=== PATIENT | male | born 1960 | race Caucasian/White ===

== ENCOUNTER 2022-03-27 11:01 | Emergency (ER) | payer OTHER ==
[~2022-03-27] VITALS: Ht 172.7 cm; Wt 86.2 kg
[2022-03-27 11:12] VITALS: BP 144/95
--- NOTE | 2022-03-27 11:30 | NUR ---
61/M JAMES FROM [facility] C/O RLQ PAIN X1 DAY, DENIES NVD, COVID + 5 DAYS. AFEBRILE AT TRIAGE. AAO4. ON COMFORT FILLER. IV ESTABLISHED TO RIGHT HAND WITH 20G. BLOOD DRAWN AND SENT T FAISAL YATES PMH: EPILEPSY, GOUT, HYPOTHYROID, CEREBRAL PALSY, DEPRESSION
[2022-03-27] MEDS ORDERED: KETOROLAC 30 MG/ML VIAL IVP ONE (11:55)
[2022-03-27] MEDS ORDERED: NACL 0.9% 1,000 ML IV SCH (11:55)
[2022-03-27 12:12] LABS: BASOPHILS % (AUTO) 0.8 % (0.0-2.0); EOSINOPHILS # (AUTO) 0.1 K/uL (0-0.4); EOSINOPHILS % (AUTO) 2.6 % (0.0-4.0); LYMPHOCYTES # (AUTO) 0.5 K/uL (2.0-11.5); LYMPHOCYTES % (AUTO) 11.8 % (20.5-51.1); MEAN CORPUSCULAR HEMOGLOBIN 31 pg (27-31); MEAN CORPUSCULAR HGB CONC 33 g/dL (33-37); MEAN CORPUSCULAR VOLUME 91.6 fL (80-94); MONOCYTES # (AUTO) 0.4 K/uL (0.8-1.0); MONOCYTES % (AUTO) 10.1 % (1.7-9.3); NEUTROPHILS # (AUTO) 2.9 K/uL (1.8-7.7); NEUTROPHILS % (AUTO) 74.7 % (42.2-75.2); PLATELET COUNT (AUTO) 244 K/uL (140-450); RED BLOOD CELL COUNT(AUTO) 4.91 MIL/uL (4.20-6.10); WHITE BLOOD COUNT (AUTO) 3.9 K/uL (4.8-10.8)
[2022-03-27 12:42] LABS: ALBUMIN 3.9 g/dL (3.4-5.0); ANION GAP 13.2 (8-16); CARBON DIOXIDE 27.5 mmol/L (21-32); POTASSIUM 4.7 mmol/L (3.5-5.1); TOTAL BILIRUBIN 0.3 mg/dL (0.0-1.0)
--- NOTE | 2022-03-27 12:53 | NUR ---
PT UNABLE TO PROVIDE URINE AT THIS TIME. WILL ATTEMPT AGAIN LATER
[2022-03-27] MEDS ORDERED: ONDANSETRON 4 MG/2 ML VIAL IVP ONE (13:40)
[2022-03-27] MEDS ORDERED: MORPHINE SULFATE 4 MG/ML SYR IVP ONE (13:40)
[2022-03-27 14:10] LABS: APPEARANCE,URINE CLEAR (CLEAR); BILIRUBIN,URINE NEGATIVE (NEGATIVE); BLOOD, URINE NEGATIVE (NEGATIVE); COLOR,URINE YELLOW (YELLOW); LEUKOCYTE ESTERASE ,URINE NEGATIVE (NEGATIVE); NITRITE, URINE NEGATIVE (NEGATIVE); PH,URINE 5.5 (5.0-9.0); UGLUCOSE NEGATIVE (NEGATIVE)
[2022-03-27] MEDS ORDERED: predniSONE 20 MG TAB PO ONE (14:40)
[2022-03-27] MEDS ORDERED: AMOXIL/CLAVULANATE 875/125 MG 1 TAB PO ONE (14:40)
[2022-03-27] MEDS ORDERED: PRED20TA5 PO (14:42)
[2022-03-27] MEDS ORDERED: AMOX1TAB8 PO (14:44)
--- NOTE | 2022-03-27 15:23 | NUR ---
gave report to Melida from [facility]. Melida made aware of patient's dc. pending transport at this time
[2022-03-27 15:39] VITALS: BP 125/76
--- NOTE | 2022-03-27 17:45 | NUR ---
Patient discharged with v/s stable. Written and verbal after care instructions given and explained. Patient alert, oriented and verbalized understanding of instructions. Ambulance Transport with to halfway. All questions addressed prior to discharge. ID band removed. Patient advised to follow up with PMD. Rx given. Patient educated on indication of medication including possible reaction and side effects. Opportunity to ask questions provided and answered.
== END 2022-03-27 17:45 ==
LOC: MED 11:01
DX: U07.1 COVID-19 (principal); I77.6 Arteritis, unspecified; G40.909 Epilepsy, unspecified, not intractable, without status epilepticus; E03.9 Hypothyroidism, unspecified; F32.9 Major depressive disorder, single episode, unspecified; Z79.899 Other long term (current) drug therapy
CPT/HCPCS: 36415; 74176; 80053; 81003; 82150; 83690; 85025; 96361; 96374; 96375; 99284; J1885; J2270; J2405; J7030; J7512

== ENCOUNTER 2022-05-13 13:38 | Emergency (ER) | payer OTHER ==
[~2022-05-13] VITALS: Ht 180.3 cm; Wt 99.8 kg
[~2022-05-13 13:38] MED LIST: AMOX1TAB8 PO; PRED20TA5 PO
--- NOTE | 2022-05-13 13:47 | NUR ---
BIBA BLS TO ER BED 6
[2022-05-13 13:57] VITALS: BP 150/79
--- NOTE | 2022-05-13 14:00 | NUR ---
61YO MALE PT BIBA [facility] C/O EPIGASTRIC PAIN X2DAYS. REPORTS ONSET OF NAUSEA AND LOOSE STOOLS-BLOOD XTODAY. ABD NON TENDER OR DISTENDED. DENIES TAKING MEDICATION, V/D, FEVER OR CHILLS. PT AAOX4, ON INSIDE WIRER. RESPIRATIONS EVEN AND UNLABORED. BED AT LOWEST POSITION, BED RAILS UP X2 .SEIZURE PADS IN PLACE. HX: CEREBRAL PALSY, HTN, HLD, HYPOTHYROID, GOUT, B CELL LYMPHOMA, DEPRESSION NKA
--- NOTE | 2022-05-13 14:02 | NUR ---
MD MEADOWS AT BEDSIDE FOR EVALUATION
--- NOTE | 2022-05-13 14:20 | NUR ---
LAB AT BEDSIDE
--- NOTE | 2022-05-13 14:23 | NUR ---
pt encouraged to give urine sample. urinal left at bedside
[2022-05-13 14:32] LABS: BASOPHILS % (AUTO) 0.6 % (0.0-2.0); EOSINOPHILS # (AUTO) 0.1 K/uL (0-0.4); EOSINOPHILS % (AUTO) 2.4 % (0.0-4.0); HEMATOCRIT 43.4 % (36-52); HEMOGLOBIN 14.7 g/dL (12.0-18.0); LYMPHOCYTES # (AUTO) 0.4 K/uL (2.0-11.5); LYMPHOCYTES % (AUTO) 9.8 % (20.5-51.1); MEAN CORPUSCULAR HEMOGLOBIN 31 pg (27-31); MEAN CORPUSCULAR HGB CONC 34 g/dL (33-37); MEAN CORPUSCULAR VOLUME 90.4 fL (80-94); MONOCYTES # (AUTO) 0.5 K/uL (0.8-1.0); MONOCYTES % (AUTO) 11.7 % (1.7-9.3); NEUTROPHILS # (AUTO) 3.2 K/uL (1.8-7.7); NEUTROPHILS % (AUTO) 75.5 % (42.2-75.2); PLATELET COUNT (AUTO) 209 K/uL (140-450); WHITE BLOOD COUNT (AUTO) 4.2 K/uL (4.8-10.8)
[2022-05-13 14:52] LABS: ALBUMIN 4.2 g/dL (3.4-5.0); ANION GAP 10.1 (8-16); CARBON DIOXIDE 24.9 mmol/L (21-32); CREATININE 1.1 mg/dL (0.6-1.3); TOTAL BILIRUBIN 0.3 mg/dL (0.0-1.0)
--- NOTE | 2022-05-13 15:05 | NUR ---
PT W/ INCREASED NAUSEA. MD MADE AWARE
[2022-05-13] MEDS ORDERED: ONDANSETRON 4 MG/2 ML VIAL IVP ONE (15:10)
[2022-05-13] MEDS ORDERED: NACL 0.9% 1,000 ML IV ONE (15:10)
[2022-05-13 15:30] LABS: APPEARANCE,URINE CLEAR (CLEAR); BILIRUBIN,URINE NEGATIVE (NEGATIVE); BLOOD, URINE NEGATIVE (NEGATIVE); COLOR,URINE YELLOW (YELLOW); LEUKOCYTE ESTERASE ,URINE NEGATIVE (NEGATIVE); NITRITE, URINE NEGATIVE (NEGATIVE); PH,URINE 6.5 (5.0-9.0); UGLUCOSE NEGATIVE (NEGATIVE)
--- NOTE | 2022-05-13 16:12 | NUR ---
PT TAKEN TO CT VIA [facility]
--- NOTE | 2022-05-13 16:30 | NUR ---
PT BROUGHT BACK VIA [facility]
[2022-05-13 17:46] VITALS: BP 144/95
--- NOTE | 2022-05-13 18:38 | NUR ---
pt provided w/ dinner. pt awake , repositioned and eating in bed
--- NOTE | 2022-05-13 19:22 | NUR ---
REPORT GIVEN TO JORGE JULIEN. TRANSFER OF CARE AT THIS TIME
--- NOTE | 2022-05-13 20:53 | NUR ---
Patient discharged with v/s stable. Written and verbal after care instructions given and explained to parent/guardian. Parent/Guardian verbalized understanding. Ambulatorysteady gait. All questions addressed prior to discharge. Advised to follow up with PMD.
== END 2022-05-13 20:53 | disposition home or self-care (01) ==
LOC: MED 13:38
DX: R10.30 Lower abdominal pain, unspecified (principal); I10 Essential (primary) hypertension; G80.9 Cerebral palsy, unspecified; M10.9 Gout, unspecified; E78.5 Hyperlipidemia, unspecified; F32.A Depression, unspecified; G40.909 Epilepsy, unspecified, not intractable, without status epilepticus; Z79.899 Other long term (current) drug therapy
CPT/HCPCS: 36415; 74177; 80053; 81003; 83690; 85025; 96374; 99285; J2405; Q9967